=== PATIENT | female | born 1975 | race Caucasian/White ===

== ENCOUNTER 2016-05-15 17:45 | Emergency (ER) ==
[2016-05-15 17:49] VITALS: BP 145/94; TEMP 97.6; BMI 32.9
--- NOTE | 2016-05-15 18:08 | ED.PDOC ---
General ED Provider: Dr. BRADY STRANGE Chief Complaint: Shoulder Pain/Injury Stated Complaint: left shoulder rotator cuff tear Time Seen by Physician: 18:00 (seen with MULTI DISCIPLINED LANGUAGE ANALYST AT ALL TIMES ) Mode of Arrival: Walk-In Information Source: Patient Exam Limitations: No limitations (HAS HAD 1 PRIOR STEROID INJECTION IN THE LEFT SHOULDER CONTACTED CLINIC FOR PAIN MEDS UNABLE TO OBATIN THEM PT STATED NOONE CALLED HER BACK) Primary Care Provider: KIRIT DE LEON Referred to ED by: Other (SEEN ORTHO HAD INJECTED HER SHOULDER WILL HAVE SURGERY ON ) Nursing and Triage Documentation Reviewed and Agree: Yes (NO NEW INJURY SEEN WITH E/D TECH) Musculoskeletal Complaint Exam - Shoulder Pain Complaint/Exam Mechanism of Injury: Reports: No known trauma, Other (THIS IS A WELL DOCUMENTATED ROATOR CUFFF INJURY WITH NO FURTHER INJURY) Onset/Duration: CHRONIC ISSUE Symptoms Are: Still present Timing: Intermittent Initial Severity: Moderate Current Severity: Moderate Character: Reports: Aching, Spasmodic, Stiffness Alleviating: Reports: Rest Aggravating: Reports: Movement, Lifting, Flexion, Extension, Internal rotation, External rotation, Abduction Associated Signs and Symptoms: Denies: Swelling, Redness, Bruising, Fever, Weakness, Numbness, Tingling Related History: Reports: Similar episode Non-Orthopedic Risk Factors: Reports: None DVT Risk Factors: Reports: None Septic Arthritis Risk Factors: Reports: None Related Surgical History: Reports: None Shoulder Findings: Absent: Laceration, Foreign body, Adson's Sign Tenderness: Present: Rotator cuff muscles Limited Range of Motion: Present: Abduction, Adduction, Flexion, Extension, Internal rotation, External rotation, Rotator cuff muscles, Rotator cuff insertion Differential Diagnoses: Rotator Cuff Injury Review of Systems - Review Of Systems Constitutional: Reports: No symptoms Eyes: Reports: No symptoms Ears, Nose, Mouth, Throat: Reports: No symptoms Respiratory: Reports: No symptoms Cardiac: Reports: No symptoms GI: Reports: No symptoms : Reports: No symptoms Musculoskeletal: Reports: Joint pain (LEFT SHOULDER ) Skin: Reports: No symptoms Neurological: Reports: No symptoms Endocrine: Reports: No symptoms Hematologic/Lymphatic: Reports: No symptoms All Other Systems: Reviewed and Negative Past Medical History - Past Medical History Endocrine: Reports: None Cardiovascular: Reports: None Respiratory: Reports: None Hematological: Reports: None Gastrointestinal: Reports: None Genitourinary: Reports: None Neuro/Psych: Reports: None Musculoskeletal: Reports: None Cancer: Reports: None Last Menstrual Period: 05/06/16 - Surgical History General Surgical History: Reports: Tubal ligation - Family History Family History: Reports: None - Social History Smoking Status: Current every day smoker, Heavy tobacco smoker Hx Substance Use: No Alcohol Screening: Occasionally Physical Exam - Physical Exam Appearance: Well-appearing, No pain distress, Well-nourished Eyes: JOSE, EOMI, Conjunctiva clear ENT: Ears normal, Nose normal, Oropharynx normal Respiratory: Airway patent, Breath sounds clear, Breath sounds equal, Respirations nonlabored Cardiovascular: RRR, Pulses normal, No rub, No murmur GI/: Soft, Nontender, No masses, Bowel sounds normal, No Organomegaly Musculoskeletal: Limited ROM (LEFT SHOULDER ) Skin: Warm, Dry, Normal color Neurological: Sensation intact, Motor intact, Reflexes intact, Cranial nerves intact, Alert, Oriented Psychiatric: Affect appropriate, Mood appropriate Critical Care Note - Critical Care Note Total Time (mins): 0 Course - Course Vital Signs: Temp Pulse Resp BP Pulse Ox 05/15/16 17:46 97.6 F 85 14 145/94 H 98 Departure - Departure Time of Disposition: 18:10 (EXPLAINED TO THE PT WITH MULTI DISCIPLINED LANGUAGE ANALYST THAT PAIN MEDS WILL BE PROVIDED UNTIL WEDNESDAY(3DAYS) SHE MUST CONTACT HER PRIMARY OR ORTHO FOR FURTHER PAIN CONTROL) Disposition: HOME SELF-CARE Discharge Problem: Shoulder pain Rotator cuff disorder Qualifiers: Laterality: left Qualifier Code: (M67.912) Unspecified disorder of synovium and tendon, left shoulder Instructions: Rotator Cuff Injury (ED), Rotator Cuff Tendinitis (ED) Condition: Good Pt referred to PMD for follow-up: No Additional Instructions: Please call your Family Physician as soon as possible to schedule a follow-up appointment. Prescriptions: Hydrocodone/Acetaminophen [[place] 5-325 Tablet] 1 each PO Q8HR PRN #10 tablet PRN Reason: PAIN Allergies/Adverse Reactions: Allergies No Known Allergies Allergy (Verified 05/15/16 17:49) Home Medications: Ambulatory Orders Hydrocodone/Acetaminophen [[place] 5-325 Tablet] 1 each PO Q8HR PRN #10 tablet 10/24 Disposition Discussed With: Patient
== END 2016-05-15 18:54 | disposition home or self-care (01) ==
LOC: ED 17:45
DX: M25.512 Pain in left shoulder (principal); M67.912 Unspecified disorder of synovium and tendon, left shoulder; F17.210 Nicotine dependence, cigarettes, uncomplicated
CPT/HCPCS: 99282

== ENCOUNTER 2016-07-21 08:05 | Outpatient (RCR) ==
[2012-10-28 15:04] VITALS: TEMP 98.1
--- NOTE | 2016-07-21 09:11 | RS.OPPTEV2 ---
Date of Note: 07/21/16 Visit #: 1 Date of Evaluation: 07/21/16 Date of Onset/Injury/Change in Status: 06/25/16 Surgery Performed?: Yes (06/25/2016) Treatment Diagnosis: Post rotator cuff repair, left History of Condition/Mechanism of Injury:: Pt had surgery to correct left RCT last month. She does not know mechanism of injury but is doing well since surgery. She wants to return to work but is still limited in ROM and strength of the left shoulder. Prior Level of Function.....Patient was independent with: ADL's, Self Care, Work /Vocation, Caregiving, Ambulation/Mobility, Community Integration/Access Functional Limitations: Self Care, Reaching Treatment Side (optional): Left Medical History Medical History: Unremarkable Surgical History: Other Surgical History Comments:: Left RCR Smoking Status: Current every day smoker Hx Home Medications: [place] 7.5 prn Pain Assessment - Pain Description Pain Location: Left shoulder Pain Description: Tightness Pain Description: Intermittent pain pulling Current Pain Intensity: 1/10 Worst Pain Intensity: 9/10 Functional Outcome Measure UE Functional Index: 22 - G Codes & Severity Modifier G Codes & Modifier: NA Source of G Code score: NA - Left Shoulder ROM Left Shoulder Flexion: 130 Left Shoulder Abduction: 83 Left Shoulder External Rotation: 40 - Left Shoulder Strength Left Shoulder Flexion: 4 Good Left Shoulder Extension: 4+ Good + Left Shoulder Abduction: 4- Good- Left Shoulder External Rotation: 4 Good Left Shoulder Internal Rotation: 4- Good- Comments: Increase pain thru the entire arm and hand iwth resistance to internal rotation. Palpation Palpation Findings: Tenderness (Throughout the left shoulder complex) Sensation - Sensation Left Upper Extremity: Impaired Sensation Description: Heaviness Interventions - Exercise/Activities/Manual Therapy Exercises/Activities: 2 sets 10-12 reps of AAROM left shoulder in all planes of motion with pt in supine. Painful end feel with end range stretching. Manual Therapy: NA HOME EXERCISE PROGRAM: Wand exercises for shoulder flexion within tolerable ROM. - Charges Total Direct Minutes: 30 Total Treatment Time: 60 Procedures billed for this date of service:: PT Annika (Low) Ex X 2 Assessment Assessment: Left shoulder pain, decreased ROM and strength limiting her ADL performance. Patient Education: Education of diagnosis, Body/Joint mechanics, Home Exercise Program, Education of Plan of Care Rehab Potential: Good Short Term Goals Goal #1: Patient reports min-mod pain with work act in left shoulder. Goal to be met by: 08/07/16 Goal #2: Patient independent with basic HEP. Goal to be met by: 08/07/16 Goal #3: Left shoulder AAROM 160 degrees Goal to be met by: 08/07/16 Goal #4: Left shoulder AAROM abduction 140 degrees Goal to be met by: 08/07/16 Bait Tier Goals Goal #1: Left shoulder AROM WFLs in all planes. Goal to be met by: 08/28/16 Goal #2: Left rotator cuff strength 5/5 Goal to be met by: 08/28/16 Goal #3: UE Functional Index 60/80 Goal to be met by: 08/28/16 Goal #4: Independent with DC HEP to continue with shoulder rehab. Goal to be met by: 08/28/16 Plan - Treatment to be Provided Procedures: Therapeutic Exercises, Therapeutic Activity, Manual Therapy, Massage , Patient Education Modalities: Electrical Stimulation, Ultrasound/Phonophoresis, Class IV Laser, Cryotherapy, Hot Packs - Treatment Plan Frequency: 3 X week Duration: 6 weeks ORDER # VISITS AND/OR THROUGH DATE: 08/28/2016 - Treatment Code (1) Decreased ROM of left shoulder Comments: M25.612 (2) Muscle weakness (generalized) Comments: M62.81 (3) Left shoulder pain Qualifiers: Chronicity: acute Qualified Description: Acute pain of left shoulder Qualifier Code(s): (M25.512) Pain in left shoulder
== END 2016-08-07 ==
DX: M19.90 Unspecified osteoarthritis, unspecified site (principal); M75.112 Incomplete rotator cuff tear or rupture of left shoulder, not specified as traumatic

== ENCOUNTER 2016-09-04 15:07 | Outpatient (CLI) ==
[2012-10-28 15:04] VITALS: TEMP 98.1
[2016-09-04 15:16] LABS: BASOPHILS % (AUTO) 0.3 % (0.0-3.0); EOSINOPHILS # (AUTO) 0.3 K/ul (0.0-0.7); EOSINOPHILS % (AUTO) 2.8 % (0.0-7.0); HEMATOCRIT 40.8 % (37.0-47.0); HEMOGLOBIN 13.8 g/dl (12.0-16.0); IMMATURE GRANULOCYTE % (AUTO) 0.6 % (0.0-5.0); LYMPHOCYTES # (AUTO) 2.6 K/uL (0.60-3.4); MEAN CORPUSCULAR HEMOGLOBIN 29.7 pg (27.0-31.0); MEAN CORPUSCULAR HGB CONC 33.8 (31.8-35.4); MEAN CORPUSCULAR VOLUME 87.9 fl (81.0-99.0); MONOCYTES # (AUTO) 0.8 K/uL (0.4-2.0); MONOCYTES % (AUTO) 8.9 (0-10); NEUTROPHILS # (AUTO) 5.6 K/ul (2.0-6.9); NEUTROPHILS % (AUTO) 59.4; PLATELET COUNT 396 10^3/uL (140-440); RED BLOOD COUNT 4.64 10^6/ul (4.20-5.40); WHITE BLOOD COUNT 9.35 K/ul (4.6-10.2)
[2016-09-04 15:55] LABS: ALBUMIN 3.6 g/dL (3.4-5.0); ALBUMIN/GLOBULIN RATIO 1.03; ANION GAP 11.9; BILIRUBIN,TOTAL 0.19 mg/dL (0.00-1.20); BUN/CREATININE RATIO 21.62; CALCIUM 9.3 mg/dL (8.2-10.2); CHOL/HDL RATIO 5.8 (4.5-5.5); CREATININE 0.74 mg/dL (0.60-1.30); POTASSIUM 3.9 mmol/L (3.5-5.10); TOTAL PROTEIN 7.1 g/dL (6.4-8.2)
== END 2016-09-04 15:08 | disposition home or self-care (01) ==
LOC: LAB 15:07
PROVIDERS: ATTEND Nurse Practitioner Family
DX: E75.6 Lipid storage disorder, unspecified (principal); E66.9 Obesity, unspecified
CPT/HCPCS: 36415; 80053; 80061; 84439; 84443; 85025

== ENCOUNTER 2016-09-06 13:31 | Outpatient (CLI) ==
[2012-10-28 15:04] VITALS: TEMP 98.1
== END 2016-09-06 13:32 | disposition home or self-care (01) ==
LOC: CAR 13:31
PROVIDERS: ATTEND Nurse Practitioner Family
DX: E75.6 Lipid storage disorder, unspecified (principal); E66.9 Obesity, unspecified
CPT/HCPCS: 93005; 93010

== ENCOUNTER 2016-09-08 08:07 | Outpatient (CLI) ==
[2012-10-28 15:04] VITALS: TEMP 98.1
--- NOTE | 2016-09-09 08:26 | MAMMO ---
EXAM: Bilateral digital screening mammogram History: Baseline screening Findings: MLO and CC views of bilateral breasts demonstrate heterogeneously dense breast parenchyma which can obscure small lesions. There are two asymmetries seen within the upper-outer quadrant of the left breast. Benign bilateral vascular calcifications. Impression: Indeterminate left breast asymmetries. Recommend further evaluation with spot compress ion views and possible ultrasound. BIRADS 0
== END 2016-09-08 08:08 | disposition home or self-care (01) ==
LOC: RAD 08:07
PROVIDERS: ATTEND Nurse Practitioner Family
DX: Z12.31 Encounter for screening mammogram for malignant neoplasm of breast (principal); R73.09 Other abnormal glucose
CPT/HCPCS: 36415; 83036

== ENCOUNTER 2016-09-11 07:59 | Outpatient (CLI) ==
[2012-10-28 15:04] VITALS: TEMP 98.1
--- NOTE | 2016-09-11 08:42 | MAMMO ---
EXAM: Left digital diagnostic mammogram History: Left breast asymmetries Comparison: Bilateral mammogram 09/08/2016 Findings: Left breast density is scattered. Additional spot compression views of the left breast c onfirm the presence of a upper outer quadrant left breast nodule. There are no suspicious microcalc ifications. Impression: Indeterminate upper-outer quadrant left breast nodule. Recommend further evaluation wi th ultrasound. BIRADS 0
--- NOTE | 2016-09-11 09:21 | US ---
EXAM: Left breast ultrasound. History: Left breast asymmetry. Comparison: Left diagnostic mammogram 09/11/2016 Technique: Multiple sonographic images through the left breast were obtained. Color duplex Doppler was used to interrogate vascular flow. Findings: 0.8 cm x 0.8 cm x 0.5 cm benign lymph node at 2 o'clock 7 cm from nipple. 0.5 cm x 0.3 cm x 0.6 cm c omplicated cyst with internal echoes at 12 o'clock 7 cm from nipple. This may correlate with mammog samantha. Impression: Probably benign 12 o'clock complicated cyst. Recommend 6-month follow-up left mammogra m and ultrasound in 6 months to document stability. BIRADS 3
== END 2016-09-11 08:00 | disposition home or self-care (01) ==
LOC: RAD 07:59
PROVIDERS: ATTEND Nurse Practitioner Family
DX: R92.8 Other abnormal and inconclusive findings on diagnostic imaging of breast (principal); N63 Unspecified lump in breast

== ENCOUNTER 2017-04-22 13:59 | Outpatient (CLI) ==
[2012-10-28 15:04] VITALS: TEMP 98.1
[2017-04-22 14:04] LABS: FLU INTERNAL QC INTERNAL QC VALID; RAPID FLU A NEGATIVE (NEGATIVE); RAPID FLU B NEGATIVE (NEGATIVE)
== END 2017-04-22 14:00 | disposition home or self-care (01) ==
LOC: LAB 13:59
PROVIDERS: ATTEND Nurse Practitioner Family
DX: R50.9 Fever, unspecified (principal)
CPT/HCPCS: 87651; 87804; 87880

== ENCOUNTER 2017-05-18 22:17 | Emergency (ER) ==
[2017-05-18 22:29] VITALS: BMI 34.2
[2017-05-18] MEDS ORDERED: PHENERGAN 25 MG/ML VIAL IM STA (22:49)
[2017-05-18] MEDS ORDERED: DEMEROL 50 MG/ML VIAL IM STA (22:49)
--- NOTE | 2017-05-18 22:53 | ED.PDOC ---
General ED Provider: Dr. REGINA JONES Chief Complaint: Back Pain Stated Complaint: Patient states she has back pain on the right side for one week. Pain is radiating to the right thigh. Describes it as an aching pain worse with laying down. states she has a bad habit of lifting things poorly. Time Seen by Physician: 22:40 Mode of Arrival: Walk-In Information Source: Patient Exam Limitations: No limitations [facility] Nursing and Triage Documentation Reviewed and Agree: Yes Reviewed sepsis parameters & appropriate labs ordered?: Yes System Inflammatory Response Syndrome: Not Applicable Sepsis Protocol: For patient's 13 years and over: Temp is 96.8 and below OR 101 and greater Pulse >90 BPM Resp >20/minute Acutely Altered Mental Status Are patient's symptoms suggestive of a new infection, such as: -Pneumonia -Skin, Soft Tissue -Endocarditis -UTI -Bone, Joint Infection -Implantable Device -Acute Abdominal Infection -Wound Infection -Meningitis -Blood Stream Catheter Infection -Unknown System Inflammatory Response Syndrome: Not Applicable Musculoskeletal Complaint Exam - Back Pain Complaint/Exam Mechanism of Injury: Reports: No known trauma Onset/Duration: 1 week Symptoms Are: Still present Timing: Constant Initial Severity: Moderate Current Severity: Severe Location: Reports: Discrete (Right lower back ), Radiating (Right Thigh) Character: Reports: Aching, Throbbing Aggravating: Reports: Movements, Bending Alleviating: Reports: Position Associated Signs and Symptoms: Denies: Swelling, Redness, Bruising, Fever, Weakness, Numbness, Tingling, Abdominal pain, Flank pain, Bladder incontinence, Bowel incontinence, Weight loss, Pain with weight bearing Related History: Denies: Similar episode TAD Risk Factors: Reports: None AAA Risk Factors: Reports: None Cauda Equina Risk Factors: Reports: None Epidural Abcess Risk Factors: Reports: None Related Surgical History: Reports: None Focal Tenderness: Yes Paraspinal Muscle Tenderness: Yes Paraspinal Muscle Spasm: Yes (right lower back ) Scoliosis: No Lordosis: No SLR Test: Right Positive, Left Positive Hip Motion Testing Pain: Right Negative, Left Negative Focal Weakness: Present: None Focal Sensory Loss: Present: None Gait: Present: Normal Back Picture: 1 - Tenderness and pain 2 - Radiation Differential Diagnoses: Herniated Disk, Strain, Sprain Review of Systems - Review Of Systems Constitutional: Reports: No symptoms Eyes: Reports: No symptoms Ears, Nose, Mouth, Throat: Reports: No symptoms Respiratory: Reports: No symptoms Cardiac: Reports: No symptoms GI: Reports: No symptoms : Reports: No symptoms Musculoskeletal: Reports: Back pain, Muscle pain, Muscle stiffness Skin: Reports: No symptoms Neurological: Reports: Anxiety Endocrine: Reports: No symptoms Hematologic/Lymphatic: Reports: No symptoms All Other Systems: Reviewed and Negative Past Medical History - Past Medical History Endocrine: Reports: None Cardiovascular: Reports: None Respiratory: Reports: None Hematological: Reports: None Gastrointestinal: Reports: None Genitourinary: Reports: None Neuro/Psych: Reports: None Musculoskeletal: Reports: None Cancer: Reports: None Last Menstrual Period: 1 WEEK AGO - Surgical History General Surgical History: Reports: Tubal ligation, Orthopedic (left rotator cuff tear) - Family History Family History: Reports: None - Social History Smoking Status: Current every day smoker, Heavy tobacco smoker Hx Substance Use: No Alcohol Screening: Occasionally - Immunizations Tetanus Shot up to Date: Yes Physical Exam - Physical Exam Appearance: Ill-appearing Ill-appearing: Moderate Pain Distress: Severe Eyes: JOSE, EOMI, Conjunctiva clear ENT: Ears normal, Nose normal, Oropharynx normal Neck: Supple Respiratory: Airway patent, Breath sounds clear, Breath sounds equal, Respirations nonlabored Cardiovascular: RRR, Pulses normal, No rub, No murmur GI/: Soft, Nontender, No masses, Bowel sounds normal, No Organomegaly Musculoskeletal: Normal strength, No edema, No calf tenderness, Limited ROM Skin: Warm Neurological: Alert, Oriented Psychiatric: Anxious Critical Care Note - Critical Care Note Total Time (mins): 0 Course - Course Orders, Labs, Meds: Orders Category Date Time Status Meperidine HCl/Pf [Demerol 50 mg/ml Vial] MEDS 05/18/17 22:49 Discontinued 50 mg IM ONCE STA Promethazine HCl [Phenergan 25 mg/ml Vial] MEDS 05/18/17 22:49 Discontinued 25 mg IM ONCE STA Medications Discontinued Medications Generic Name Dose Route Start Last Admin Trade Name Maycolq PRN Reason Stop Dose Admin Meperidine HCl 50 mg 05/18/17 22:49 05/18/17 23:01 Demerol 50 Mg/Ml Vial IM 05/18/17 22:50 50 mg ONCE STA Administration Promethazine HCl 25 mg 05/18/17 22:49 05/18/17 23:01 Phenergan 25 Mg/Ml Vial IM 05/18/17 22:50 25 mg ONCE STA Administration Vital Signs: Temp Pulse Resp BP Pulse Ox 05/18/17 23:40 97.9 F 73 18 106/65 95 05/18/17 22:18 98.2 F 83 18 135/86 96 Departure - Departure Time of Disposition: 23:35 Disposition: HOME SELF-CARE Discharge Problem: Backache, Sciatica of right side associated with disorder of lumbosacral spine Instructions: Lumbar Radiculopathy (ED), Lower Back Exercises (ED) Condition: Stable Pt referred to PMD for follow-up: Yes IPMP verified?: No Additional Instructions: Rest Use safe lifting taking to prevent back pain Follow up with the Clinic for Physical therapy Referral and possible MRI if pain is not better. Prescriptions: Hydrocodone/Acetaminophen [[place] 5-325 Tablet] 1 tab PO Q6HR PRN #14 tablet PRN Reason: PAIN Ibuprofen [Motrin] 600 mg PO Q6H PRN #30 tablet PRN Reason: Analgesia Allergies/Adverse Reactions: Allergies No Known Allergies Allergy (Verified 05/18/17 22:26) Home Medications: Ambulatory Orders Hydrocodone/Acetaminophen [[place] 5-325 Tablet] 1 tab PO Q6HR PRN #14 tablet 01/25 Ibuprofen [Motrin] 600 mg PO Q6H PRN #30 tablet 05/18/17 Disposition Discussed With: Patient, Family
[2017-05-18 23:47] VITALS: BP 106/65; TEMP 97.9
== END 2017-05-18 23:45 | disposition home or self-care (01) ==
LOC: ED 22:17
DX: M54.41 Lumbago with sciatica, right side (principal); F17.210 Nicotine dependence, cigarettes, uncomplicated
CPT/HCPCS: 96372; 99283

== ENCOUNTER 2017-10-15 08:40 | Outpatient (CLI) ==
[2012-10-28 15:04] VITALS: TEMP 98.1
--- NOTE | 2017-10-15 11:02 | US ---
EXAM: Digital diagnostic mammogram and left breast ultrasound HISTORY: Left breast lump COMPARISON: 09/11/2016 FINDINGS: Mammogram: Digital MLO and CC views of the right and left breast were performed. Tomosynthesis was performed. Computer aided detection utilized. Spot compression MLO view right breast and spot compression CC an d MLO views left breast. There are scattered fibroglandular densities. There is no evidence for mass , asymmetry, distortion, or suspicious calcifications in the right breast. There is a benign-appearin g lymph node with normal fatty hilum seen in the right breast. There is a stable nodule in the left upper outer quadrant breast. Ultrasound: Ultrasound left breast performed. At the 12 o'clock position 6-7 cm from the nipple, there is a well -circumscribed ovoid hypoechoic mass without internal vascularity, measuring 3 x 0.9 x 0.5 cm centime ters, probably grossly unchanged accounting for difference in technique. IMPRESSION: 1. Probably benign left breast complicated cyst or fibroadenoma. Recommend 6-month follow-up left b reast mammogram and ultrasound to document stability. 2. Benign right breast mammogram. BIRADS category 3, probably benign
== END 2017-10-15 08:41 | disposition home or self-care (01) ==
LOC: RAD 08:40
PROVIDERS: ATTEND Physician Assistant
DX: N63.20 Unspecified lump in the left breast, unspecified quadrant (principal)

== ENCOUNTER 2017-12-03 23:10 | Emergency (ER) ==
[2017-12-03] MEDS ORDERED: SODIUM CHLORIDE 1,000 ML IV STA (23:31)
[2017-12-03] MEDS ORDERED: DECADRON 4 MG/ML SDV IVP STA (23:32)
[2017-12-03] MEDS ORDERED: DILAUDID 2 MG/ML SYRINGE IVP STA (23:32)
[2017-12-03] MEDS ORDERED: ZOFRAN 4 MG/2 ML IVP STA (23:32)
[2017-12-03] MEDS ORDERED: CLEOCIN 900 MG in SODIUM CHLORIDE 50 ML IV STA (23:33)
[2017-12-03] MEDS ORDERED: ROCEPHIN 1 GM in SODIUM CHLORIDE 50 ML IV STA (23:33)
[2017-12-03 23:55] VITALS: BP 153/95; TEMP 96.8; BMI 34.4
[2017-12-03] MEDS ORDERED: CLEOCIN ONE (23:55)
[2017-12-03] MEDS ORDERED: ROCEPHIN ONE (23:55)
[2017-12-04] MEDS ORDERED: DILAUDID 0.5 MG/0.5 ML SYRINGE IVP STA (00:56)
[2017-12-04] MEDS ORDERED: TORADOL IVP STA ×2 (00:57→01:05)
[2017-12-04] MEDS ORDERED: TORADOL ONE (00:59)
--- NOTE | 2017-12-04 01:03 | CT ---
EXAM: CT maxillofacial without contrast. HISTORY: Left jaw pain. Questionable dental abscess. PROCEDURE: Contiguous axial CT images of the face and orbits without contrast with coronal and sagit hayley reformats. FINDINGS: There are multiple dental fillings with associated artifact which limits the exam. There is a lucency surrounding the root of the left mandibular second molar suspicious for a tooth abscess. T here is soft tissue swelling and inflammatory stranding of the subcutaneous fat along the lateral mar gin of the left mandible consistent with infection. No evidence of a soft tissue abscess. There are enlarged cervical lymph nodes measuring up to 1.2 cm in short axis which is probably reactive. The temporomandibular joints are maintained. The orbits are normal in appearance. There is minimal mucos al thickening in the paranasal sinuses. The mastoid air cells are well-aerated and normal in appearan ce. Impression: Lucency surrounding the root of the left mandibular second molar, suspicious for a tooth abscess. Soft tissue swelling and inflammatory stranding of the subcutaneous fat along the lateral margin of t he left mandible, consistent with infection. Cervical lymphadenopathy as described. Paranasal sinusitis.
[2017-12-04] MEDS ORDERED: DILAUDID 2 MG/ML SYRINGE IVP STA (01:06)
[2017-12-04] MEDS: CLEOCIN ONE ×2 (01:07→01:35)
--- NOTE | 2017-12-04 02:30 | ED.PDOC ---
General ED Provider: Dr. SUZANNE COULTER-ER Chief Complaint: Tooth Problem Stated Complaint: katharine got a swollen tooth Time Seen by Physician: 23:35 Mode of Arrival: Walk-In Information Source: Patient Exam Limitations: No limitations Primary Care Provider: GWENDOLYN SMITH Nursing and Triage Documentation Reviewed and Agree: Yes Does patient meet sepsis criteria?: No System Inflammatory Response Syndrome: Not Applicable Sepsis Protocol: For patient's 13 years and over: Temp is 96.8 and below OR 101 and greater Pulse >90 BPM Resp >20/minute Acutely Altered Mental Status Are patient's symptoms suggestive of a new infection, such as: -Pneumonia -Skin, Soft Tissue -Endocarditis -UTI -Bone, Joint Infection -Implantable Device -Acute Abdominal Infection -Wound Infection -Meningitis -Blood Stream Catheter Infection -Unknown EENT Complaint Exam - Dental/Oral Complaint/Exam Mechanism of Injury: No known trauma Onset/Duration: 2 dasy Symptoms Are: Still present Timing: Constant Initial Severity: Mild Current Severity: Mild Location: leftlower jaw Character: Reports: Dull, Aching, Throbbing Aggravating: Reports: Heat, Cold, Chewing Alleviating: Reports: None Associated Signs and Symptoms: Reports: Swelling, Foul odor Review of Systems - Review Of Systems Constitutional: Reports: No symptoms Eyes: Reports: No symptoms Ears, Nose, Mouth, Throat: Reports: No symptoms Respiratory: Reports: No symptoms Cardiac: Reports: No symptoms GI: Reports: No symptoms : Reports: No symptoms Musculoskeletal: Reports: No symptoms Skin: Reports: No symptoms Neurological: Reports: No symptoms Endocrine: Reports: No symptoms Hematologic/Lymphatic: Reports: No symptoms All Other Systems: Reviewed and Negative Past Medical History - Past Medical History Previously Healthy: Yes Endocrine: Reports: None Cardiovascular: Reports: None Respiratory: Reports: None Hematological: Reports: None Gastrointestinal: Reports: None Genitourinary: Reports: None Neuro/Psych: Reports: None Musculoskeletal: Reports: None Cancer: Reports: None Last Menstrual Period: now - Surgical History General Surgical History: Reports: Tubal ligation, Orthopedic (left rotator cuff tear) - Family History Family History: Reports: None - Social History Smoking Status: Current every day smoker, Light tobacco smoker Hx Substance Use: No Alcohol Screening: Occasionally - Immunizations Tetanus Shot up to Date: Yes Physical Exam - Physical Exam Appearance: Well-appearing, No pain distress, Well-nourished Eyes: JOSE, EOMI, Conjunctiva clear ENT: Ears normal, Nose normal, Oropharynx normal Respiratory: Airway patent Cardiovascular: RRR, Pulses normal, No rub, No murmur GI/: Soft, Nontender, No masses, Bowel sounds normal, No Organomegaly Musculoskeletal: Normal strength Skin: Warm, Dry, Normal color Neurological: Sensation intact, Motor intact, Reflexes intact, Cranial nerves intact, Alert, Oriented Psychiatric: Affect appropriate Interpretation - Radiology Interpretation Radiology Interpretation By: Radiologist Radiology Results: Positive Exam Interpreted: CT Scan Critical Care Note - Critical Care Note Total Time (mins): 0 Course - Course Hematology/Chemistry: 12/03/17 23:50 12/03/17 23:50 Orders, Labs, Meds: Lab Review 12/03/17 12/03/17 23:50 23:50 WBC 13.85 H RBC 4.44 Hgb 13.0 Hct 38.2 MCV 86.0 MCH 29.3 MCHC 34.0 RDW Coeff of Forrest 12.8 Plt Count 363 Immature Gran % (Auto) 0.3 Neut % (Auto) 71.9 Lymph % (Auto) 15.5 Josephine % (Auto) 10.8 H Eos % (Auto) 1.4 Baso % (Auto) 0.1 Immature Gran # (Auto) 0.0 Neut # (Auto) 10.0 H Lymph # (Auto) 2.2 Josephine # (Auto) 1.5 Eos # (Auto) 0.2 Baso # (Auto) 0.0 Sodium 139 Potassium 4.2 Chloride 107 Carbon Dioxide 24 Anion Gap 12.2 BUN 13 Creatinine 0.62 Estimated GFR (MDRD) 105.00 BUN/Creatinine Ratio 20.96 Glucose 112 H Calcium 9.1 Orders Category Date Time Status ED IV/MEDIPORT/POWERPORT .ONCE EMERGENCY 12/03/17 23:31 Active BMP [BASIC METABOLIC PANEL] Stat LAB 12/03/17 23:50 Completed CBC W/ AUTO DIFF Stat LAB 12/03/17 23:50 Completed 0.9 % Sodium Chloride [Saline Flush] MEDS 12/03/17 23:31 Ordered 1 syr IVF PRN PRN Ceftriaxone Sodium [Rocephin] MEDS 12/03/17 23:55 Discontinued 1 gm .ROUTE .STK-MED ONE Ceftriaxone Sodium [Rocephin] 1 gm MEDS 12/03/17 23:33 Discontinued 0.9 % Sodium Chloride [Sodium Chloride] 50 ml IV ONCE Clindamycin Phosphate Inj [Cleocin] MEDS 12/03/17 23:55 Discontinued 300 mg .ROUTE .STK-MED ONE Clindamycin Phosphate Inj [Cleocin] MEDS 12/04/17 00:53 Discontinued 300 mg .ROUTE .STK-MED ONE Clindamycin Phosphate Inj [Cleocin] 900 mg MEDS 12/03/17 23:33 Discontinued 0.9 % Sodium Chloride [Sodium Chloride] 50 ml IV ONCE Dexamethasone 4 mg/ml Inj [Decadron 4 mg/ml Sdv] MEDS 12/03/17 23:32 Discontinued 8 mg IVP ONCE STA Hydromorphone HCl [Dilaudid 0.5 mg/0.5 ml Syringe] MEDS 12/04/17 00:56 Discontinued 1 mg IVP ONCE STA Hydromorphone HCl/Pf [Dilaudid 2 mg/ml Syringe] MEDS 12/03/17 23:32 Discontinued 1 mg IVP ONCE STA Hydromorphone HCl/Pf [Dilaudid 2 mg/ml Syringe] MEDS 12/04/17 01:06 Discontinued 1 mg IVP ONCE STA Ketorolac Tromethamine [Toradol] MEDS 12/04/17 00:59 Discontinued 30 mg .ROUTE .K-MED ONE Ketorolac Tromethamine [Toradol] MEDS 12/04/17 00:57 Discontinued 30 mg IVP ONCE STA Ketorolac Tromethamine [Toradol] MEDS 12/04/17 01:05 Discontinued 30 mg IVP ONCE STA Ondansetron HCl/Pf [Zofran 4 mg/2 ml] MEDS 12/03/17 23:32 Discontinued 4 mg IVP ONCE STA Sodium Chloride 0.9% [Sodium Chloride] 1,000 ml MEDS 12/03/17 23:31 Active IV 100 mls/hr CT MAXILLOFACIAL W/O CONTRAST Stat RADS 12/03/17 23:33 Completed Medications Generic Name Dose Route Start Last Admin Trade Name Freq PRN Reason Stop Dose Admin Sodium Chloride 1,000 mls @ 100 mls/hr 12/03/17 23:31 12/04/17 01:36 Sodium Chloride IV 12/04/17 09:30 100 mls/hr .Q10H STA Administration Sodium Chloride 1 syr 12/03/17 23:31 Saline Flush IVF PRN PRN To flush IV Discontinued Medications Generic Name Dose Route Start Last Admin Trade Name Damaris PRN Reason Stop Dose Admin Dexamethasone Sodium Phosphate 8 mg 12/03/17 23:32 12/04/17 00:06 Decadron 4 Mg/Ml Sdv IVP 12/03/17 23:33 8 mg ONCE STA Administration Hydromorphone HCl 1 mg 12/03/17 23:32 12/04/17 00:07 Dilaudid 2 Mg/Ml Syringe IVP 12/03/17 23:33 1 mg ONCE STA Administration Hydromorphone HCl 1 mg 12/04/17 00:56 12/04/17 01:08 Dilaudid 0.5 Mg/0.5 Ml Syringe IVP 12/04/17 00:57 Not Given ONCE STA Hydromorphone HCl 1 mg 12/04/17 01:06 12/04/17 01:08 Dilaudid 2 Mg/Ml Syringe IVP 12/04/17 01:07 1 mg ONCE STA Administration Ceftriaxone Sodium 1 gm/ 50 mls @ 75 mls/hr 12/03/17 23:33 12/04/17 00:07 Sodium Chloride IV 12/04/17 00:12 75 mls/hr ONCE STA Administration Clindamycin Phosphate 900 mg/ 56 mls @ 50 mls/hr 12/03/17 23:33 12/04/17 01: 35 Sodium Chloride IV 12/04/17 00:40 50 mls/hr ONCE STA Administration Ketorolac Tromethamine 30 mg 12/04/17 00:57 12/04/17 01:36 Toradol IVP 12/04/17 00:58 30 mg ONCE STA Administration Ketorolac Tromethamine 30 mg 12/04/17 01:05 12/04/17 01:37 Toradol IVP 12/04/17 01:06 Not Given ONCE STA Ondansetron HCl 4 mg 12/03/17 23:32 12/04/17 00:07 Zofran 4 Mg/2 Ml IVP 12/03/17 23:33 4 mg ONCE STA Administration Vital Signs: Temp Pulse Resp BP Pulse Ox 12/03/17 23:32 96.8 F L 69 20 153/95 H 97 Departure - Departure Time of Disposition: 02:29 Disposition: HOME SELF-CARE Discharge Problem: Dental abscess Instructions: Dental Abscess (ED) Condition: Good Pt referred to PMD for follow-up: No IPMP verified?: No Additional Instructions: clindamycin 300mg tid x 7 days=--medrol dose pack---norco 7.5mg q 4hrs prn pain #10 Allergies/Adverse Reactions: Allergies No Known Allergies Allergy (Verified 05/18/17 22:26) Home Medications: Ambulatory Orders Ibuprofen [Motrin] 600 mg PO Q6H PRN #30 tablet 05/18/17 Escitalopram Oxalate [Lexapro] 10 mg PO DAILY 12/03/17 Transfer Form Completed: No Disposition Discussed With: Patient
== END 2017-12-04 02:42 | disposition home or self-care (01) ==
LOC: ED 23:10
DX: K04.7 Periapical abscess without sinus (principal); F17.210 Nicotine dependence, cigarettes, uncomplicated
CPT/HCPCS: 36415; 80048; 85025; 96361; 96365; 96366; 96367; 96375; 96376; 99284

== ENCOUNTER 2017-12-12 09:41 | Emergency (ER) ==
[2017-12-12 09:46] VITALS: BP 120/89; TEMP 97.7; BMI 33.9
--- NOTE | 2017-12-12 10:16 | ED.PDOC ---
General ED Provider: Dr. SUZANNE GALLARDO Chief Complaint: Sore Throat Stated Complaint: Mouth and throat soreness. patient was seen 12/03/17 for sinus infection. was placed on augmentin prior to this by her dr. then face started swelling on the left side so she came to er the . states she stopped augmentin and was placed on clindamycin and prednisone. states then a couple days ago her throat started to hurt and she states tongue started to feel funny and she thought she saw white on her throat. Time Seen by Physician: 09:40 Mode of Arrival: Walk-In Information Source: Patient Exam Limitations: No limitations Primary Care Provider: GWENDOLYN SMITH Nursing and Triage Documentation Reviewed and Agree: Yes Does patient meet sepsis criteria?: No If yes, has appropriate treatment been initiated?: No System Inflammatory Response Syndrome: Not Applicable Sepsis Protocol: For patient's 13 years and over: Temp is 96.8 and below OR 101 and greater Pulse >90 BPM Resp >20/minute Acutely Altered Mental Status Are patient's symptoms suggestive of a new infection, such as: -Pneumonia -Skin, Soft Tissue -Endocarditis -UTI -Bone, Joint Infection -Implantable Device -Acute Abdominal Infection -Wound Infection -Meningitis -Blood Stream Catheter Infection -Unknown EENT Complaint Exam - Throat Complaint/Exam Symptoms Are: Still present Timimg: Constant Initial Severity: Mild Current Severity: Mild Aggravating: Reports: None Alleviating: Reports: None Associated Signs and Symptoms: Denies: Fever, Dysphagia, Drooling, Foreign body sensation, Chills, Cough, Wheezing, Hoarseness, Sinus discomfort, Nasal congestion, Difficulty breathing, Lethargy, Irritability, Decreased activity, Vomiting, Diarrhea, Decreased hearing, Ear drainage Related History: Denies: Similar Episode, Seasonal allergies, Smoking Uvula Midline: Yes Francesca-tonsillar Fluctuence: No Scarlatinaform Rash Present: No Lesions: Present: Gums, Tongue, Buccal Mucosa, Pharynx. Absent: Lip Exanthem: Absent: Lip Vesicles: Absent: Lip, Gums, Tongue, Buccal Mucosa, Pharynx Stridor Present: No Sinus Tenderness Present: No Tonsillar Hypertrophy Present: No Tonsillar Exudate Present: Yes (White patches suspicious for thrush) Francesca-tonsillar Swelling Present: No Adenopathy Present: No Splenomegaly Present: No Differential Diagnoses: Other (Thrush) Review of Systems - Review Of Systems Constitutional: Reports: No symptoms Eyes: Reports: No symptoms, Blurred vision (States Lt eye has sensation of periodic hazzy feeling. No actual vision loss) Ears, Nose, Mouth, Throat: Reports: No symptoms, Mouth pain, Throat pain Respiratory: Reports: No symptoms Cardiac: Reports: No symptoms GI: Reports: No symptoms : Reports: No symptoms Musculoskeletal: Reports: No symptoms Skin: Reports: No symptoms Neurological: Reports: No symptoms Endocrine: Reports: No symptoms Hematologic/Lymphatic: Reports: No symptoms All Other Systems: Reviewed and Negative Past Medical History - Past Medical History Previously Healthy: Yes Endocrine: Reports: None Cardiovascular: Reports: None Respiratory: Reports: None Hematological: Reports: None Gastrointestinal: Reports: None Genitourinary: Reports: None Neuro/Psych: Reports: None Musculoskeletal: Reports: None Cancer: Reports: None Last Menstrual Period: 1 week ago - Surgical History General Surgical History: Reports: Tubal ligation, Orthopedic (left rotator cuff tear) - Family History Family History: Reports: None - Social History Smoking Status: Current every day smoker, Light tobacco smoker Hx Substance Use: No Alcohol Screening: Occasionally Physical Exam - Physical Exam Appearance: Well-appearing, No pain distress, Well-nourished Ill-appearing: None Pain Distress: None Eyes: JOSE, EOMI, Conjunctiva clear ENT: Ears normal, Nose normal, Oropharynx normal, Erythema (soft palate with thrush) Respiratory: Airway patent, Breath sounds clear, Breath sounds equal, Respirations nonlabored Cardiovascular: RRR, Pulses normal, No rub, No murmur GI/: Soft, Nontender, No masses, Bowel sounds normal, No Organomegaly Musculoskeletal: Normal strength, ROM intact, No edema, No calf tenderness Skin: Warm, Dry, Normal color Neurological: Sensation intact, Motor intact, Reflexes intact, Cranial nerves intact, Alert, Oriented Psychiatric: Affect appropriate, Mood appropriate Critical Care Note - Critical Care Note Total Time (mins): 0 Course - Course Vital Signs: Temp Pulse Resp BP Pulse Ox 12/12/17 09:42 97.7 F 85 16 120/89 95 Departure - Departure Time of Disposition: 10:20 Disposition: HOME SELF-CARE Discharge Problem: Oral thrush, Hazy vision Instructions: Oral Candidiasis (ED), Blurred Vision (ED) Condition: Good Pt referred to PMD for follow-up: Yes (PCP-1 week and [facility] in next 2-3 days) IPMP verified?: No Additional Instructions: Rinse mouth with warm salt water and cleanse oral mucosa or white thrush debris. Use Nystatin for 7 days Call [facility] for check up in next 1-2 days If symptoms worsen. return to ER Prescriptions: Nystatin [Nystatin Oral Susp] 5 ml PO ACHS #5 oz Allergies/Adverse Reactions: Allergies No Known Allergies Allergy (Verified 12/12/17 09:46) Home Medications: Ambulatory Orders Escitalopram Oxalate [Lexapro] 10 mg PO DAILY 12/03/17 Nystatin [Nystatin Oral Susp] 5 ml PO ACHS #5 oz 12/12/17 Transfer Form Completed: No (N/I) Disposition Discussed With: Patient Additional Information: Complete visual exam completed with [facility] 20/15; Peripheral vision to confrontational testing WNL without note Visual Field Deficit/ Fundascopic exam normal completed EOM -I No Jeremy Carlyle pupillary defect EYE grossly normal
== END 2017-12-12 10:35 | disposition home or self-care (01) ==
LOC: ED 09:41
DX: B37.0 Candidal stomatitis (principal); H53.8 Other visual disturbances; F17.210 Nicotine dependence, cigarettes, uncomplicated
CPT/HCPCS: 99282

== ENCOUNTER 2018-03-16 09:33 | Outpatient (CLI) ==
[2012-10-28 15:04] VITALS: TEMP 98.1
--- NOTE | 2018-03-16 15:57 | DI ---
EXAM: Left foot three view HISTORY: Left foot pain COMPARISON: None FINDINGS: No fracture or dislocation. Small plantar and posterior calcaneal spurs. No focal soft t issue abnormality. IMPERSSION: 1. No fracture or dislocation. 2. Small calcaneal spurs.
== END 2018-03-16 09:34 | disposition home or self-care (01) ==
LOC: RAD 09:33
PROVIDERS: ATTEND Physician Assistant
DX: M79.672 Pain in left foot (principal)

== ENCOUNTER 2018-05-30 11:56 | Emergency (ER) ==
[2018-05-30 12:01] VITALS: BP 133/87; TEMP 98.5; BMI 32.9
--- NOTE | 2018-05-30 12:47 | DI ---
EXAM: Fourth digit of the right foot three views HISTORY: Trauma, pain. FINDINGS: Bone and joint structures appear normal. There is no displaced fracture or joint dislocat ion seen. General bone density and soft tissues are within normal limits. IMPRESSION: Findings within normal limits.
--- NOTE | 2018-05-30 13:01 | ED.PDOC ---
General ED Provider: Dr. BRADY STRANGE Chief Complaint: Toe Pain/Injury Stated Complaint: RIGHT 4TH TOE INJURY BY BLUNT FORCE. DENIED OTHER PAIN AND DISCOMFORT Time Seen by Physician: 12:00 (SEEN WITH JOSEFINA RN AT ALL TIMES ) Mode of Arrival: Walk-In Information Source: Patient Exam Limitations: No limitations Primary Care Provider: GWENDOLYN SMITH Nursing and Triage Documentation Reviewed and Agree: Yes Does patient meet sepsis criteria?: No System Inflammatory Response Syndrome: Not Applicable Sepsis Protocol: For patient's 13 years and over: Temp is 96.8 and below OR 101 and greater Pulse >90 BPM Resp >20/minute Acutely Altered Mental Status Are patient's symptoms suggestive of a new infection, such as: -Pneumonia -Skin, Soft Tissue -Endocarditis -UTI -Bone, Joint Infection -Implantable Device -Acute Abdominal Infection -Wound Infection -Meningitis -Blood Stream Catheter Infection -Unknown Musculoskeletal Complaint Exam - Ankle/Foot Complaint/Exam Location of Injury: Reports: Right, Toe #4 Mechanism of Injury: Reports: Trauma Onset/Duration: TODAY Symptoms Are: Reports: Still present Onset of Pain: Reports: Immediate Initial Severity: Mild Current Severity: Mild Location: Reports: Discrete Character: Reports: Aching Alleviating: Reports: Rest Aggravating: Reports: Movement Able to Bear Weight: Yes Associated Signs and Symptoms: Reports: Bruising. Denies: Swelling, Redness, Fever, Weakness, Numbness, Tingling Gout Risk Factors: Reports: None Related Surgical History: Reports: None Lower Extremity Findings: Present: Ecchymosis (OF THE 4TH TOE ONLY) Achilles Tendon Abnormality: No Tenderness: Absent: Medial malleolus, Lateral malleolus, Heel, Achilles insertion, Midfoot, Metatarsals Differential Diagnosis: Closed Fracture Review of Systems - Review Of Systems Constitutional: Reports: No symptoms Eyes: Reports: No symptoms Ears, Nose, Mouth, Throat: Reports: No symptoms Respiratory: Reports: No symptoms Cardiac: Reports: No symptoms GI: Reports: No symptoms : Reports: No symptoms Musculoskeletal: Reports: Other (TOE PAIN) Skin: Reports: No symptoms Neurological: Reports: No symptoms Endocrine: Reports: No symptoms Hematologic/Lymphatic: Reports: No symptoms All Other Systems: Reviewed and Negative Past Medical History - Past Medical History Previously Healthy: Yes Endocrine: Reports: None Cardiovascular: Reports: None Respiratory: Reports: None Hematological: Reports: None Gastrointestinal: Reports: None Genitourinary: Reports: None Neuro/Psych: Reports: None Musculoskeletal: Reports: None Cancer: Reports: None Last Menstrual Period: apr 25 - Surgical History General Surgical History: Reports: Tubal ligation, Orthopedic (left rotator cuff tear) - Family History Family History: Reports: None - Social History Smoking Status: Current every day smoker, Light tobacco smoker Hx Substance Use: No Alcohol Screening: Occasionally - Immunizations Tetanus Shot up to Date: Yes Physical Exam - Physical Exam Appearance: Well-appearing, No pain distress, Well-nourished Eyes: JOSE, EOMI, Conjunctiva clear ENT: Ears normal, Nose normal, Oropharynx normal Respiratory: Airway patent, Breath sounds clear, Breath sounds equal, Respirations nonlabored Cardiovascular: RRR, Pulses normal, No rub, No murmur GI/: Soft, Nontender, No masses, Bowel sounds normal, No Organomegaly Musculoskeletal: Normal strength (RIGHT TOE NO 4 IS MILDLY BRUSED ) Skin: Warm, Dry, Normal color Neurological: Sensation intact, Motor intact, Reflexes intact, Cranial nerves intact, Alert, Oriented Psychiatric: Affect appropriate, Mood appropriate Interpretation - Radiology Interpretation Radiology Interpretation By: Radiologist Radiology Results: No acute changes Critical Care Note - Critical Care Note Total Time (mins): 0 Course - Course Orders, Labs, Meds: Orders Category Date Time Status TOE(S), RIGHT MIN 2V Stat RADS 05/30/18 12:21 Completed Vital Signs: Temp Pulse Resp BP Pulse Ox 05/30/18 11:56 98.5 F 98 H 20 133/87 95 Departure - Departure Time of Disposition: 13:01 Disposition: HOME SELF-CARE Discharge Problem: Injury of toe Contusion of toe of right foot Qualifiers: Encounter type: initial encounter Toe: unspecified toe Qualified Code(s): S90.121A - Contusion of right lesser toe(s) without damage to nail, initial encounter Instructions: Contusion in Adults (ED) Condition: Good Pt referred to PMD for follow-up: Yes IPMP verified?: No Additional Instructions: Please call your Family Physician as soon as possible to schedule a follow-up appointment. Allergies/Adverse Reactions: Allergies No Known Allergies Allergy (Verified 05/30/18 12:03) Home Medications: Ambulatory Orders 1 [No Reported Medications] 05/30/18
== END 2018-05-30 13:10 | disposition home or self-care (01) ==
LOC: ED 11:56
DX: M25.571 Pain in right ankle and joints of right foot (principal); X58.XXXA Exposure to other specified factors, initial encounter; S90.121A Contusion of right lesser toe(s) without damage to nail, initial encounter; R58 Hemorrhage, not elsewhere classified; F17.200 Nicotine dependence, unspecified, uncomplicated
CPT/HCPCS: 99283